=== PATIENT | female | born 1945 | race Caucasian/White ===

== ENCOUNTER 2021-06-17 09:52 | Emergency (ER) | payer OTHER ==
[~2021-06-17] VITALS: Ht 157.5 cm; Wt 87.5 kg
[2021-06-17 09:55] VITALS: BP 130/67
[2021-06-17] MEDS ORDERED: FISH OIL 1,0001 EAC9 PO (10:02)
[2021-06-17] MEDS ORDERED: BIOTIN1 M1 PO (10:02)
[2021-06-17] MEDS ORDERED: vitamin b12 (10:02)
[2021-06-17] MEDS ORDERED: VITAMIN D325 MC3 PO (10:03)
[2021-06-17] MEDS ORDERED: LEVO-T50 MCG PO (10:03)
[2021-06-17] MEDS ORDERED: HYDROCHLOROTH12.5 M1 PO (10:03)
[2021-06-17] MEDS ORDERED: calcium,mag,zinc (10:03)
[2021-06-17] MEDS ORDERED: SERTRALINE HCL100 MG PO (10:04)
[2021-06-17] MEDS ORDERED: BENICAR 5 MG5 MG PO (10:04)
== END 2021-06-17 11:05 | disposition home or self-care (01) ==
LOC: M.ERS 09:52
DX: S00.01XA Abrasion of scalp, initial encounter (principal); Z79.899 Other long term (current) drug therapy; Z88.6 Allergy status to analgesic agent; Z88.1 Allergy status to other antibiotic agents; Z88.5 Allergy status to narcotic agent; W01.0XXA Fall on same level from slipping, tripping and stumbling without subsequent striking against object, initial encounter; Y93.89 Activity, other specified; Y92.89 Other specified places as the place of occurrence of the external cause; Y99.8 Other external cause status